=== PATIENT | male | born 1950 | race Caucasian/White ===

== ENCOUNTER 2016-07-27 21:56 | Inpatient (IN) | payer MEDICARE, OTHER ==
[~2016-07-27] VITALS: Ht 190.5 cm; Wt 108.9 kg
[~2016-07-27 21:56] MED LIST: ALPR0.5T8 PO; AMIO200T2 PO; AMLO5TAB4 PO; BENA20TA2 PO; CARV25TA PO; EDOX60TA PO; PRAV80TA21 PO
[2016-07-27 22:40] LABS: BASOPHILS % (AUTO) 0.5 % (0.0-2.0); DIFF TOTAL % 100 %; EOSINOPHILS # (AUTO) 0.1 /CMM (0.0-0.7); EOSINOPHILS % (AUTO) 1.3 % (0.0-6.0); HEMATOCRIT 39 % (39-51); HEMOGLOBIN 12.4 g/dL (13.5-17.5); LYMPHOCYTES # (AUTO) 1.5 /CMM (0.8-4.8); MEAN CORPUSCULAR HEMOGLOBIN 28 PG (26.0-33.0); MEAN CORPUSCULAR HGB CONC 32 g/dl (31.0-36.0); MEAN CORPUSCULAR VOLUME 86 fL (80-96); MONOCYTES # (AUTO) 0.8 /CMM (0.1-1.30); MONOCYTES % (AUTO) 9.6 % (2.0-12.0); NEUTROPHILS # (AUTO) 5.9 /CMM (1.8-8.9); NEUTROPHILS % (AUTO) 70.6 % (43.0-81.0); PLATELET COUNT (AUTO) 229 /CMM (150-450); WHITE BLOOD COUNT (AUTO) 8.3 K/uL (4.3-11.0)
[2016-07-27] MEDS ORDERED: ASPIRIN 325 MG TABLET ONE (22:49)
[2016-07-27 22:50] LABS: CALCIUM, SERUM 8.8 mg/dL (8.5-10.1); CREATININE 1.6 mg/dL (0.6-1.3)
[2016-07-27 22:54] LABS: TROPONIN I 0.394 ng/mL (0.00-0.056)
[2016-07-27 22:58] LABS: INR 0.99 (0.87-1.13); PROTHROMBIN TIME 10.7 SECS (9.5-12.7)
[2016-07-27] MEDS ORDERED: ASPIRIN 325 MG TABLET PO ONE (23:00)
[2016-07-27] MEDS ORDERED: ALBUTEROL FS 2.5 MG/0.5 ML VIAL.NEB NEB PRN (23:00)
[2016-07-27] MEDS ORDERED: ALBUTEROL FS 2.5 MG/0.5 ML VIAL.NEB ONE (23:09)
[2016-07-28] VITALS (7 sets, daily range): BP systolic 117–131; BP diastolic 60–76
[2016-07-28] MEDS ORDERED: ACETAMINOPHEN 325 MG TABLET PO PRN (01:30)
[2016-07-28] MEDS ORDERED: HYDROCODONE/APAP 5/325MG 1 EACH TABLET PO PRN (01:30)
[2016-07-28] MEDS ORDERED: ALPRAZOLAM 0.5 MG TABLET PO PRN (01:30)
[2016-07-28] MEDS ORDERED: MAG HYDROX/AL HYDROX/SIMETH 30 ML UDC PO PRN (01:30)
[2016-07-28] MEDS ORDERED: MORPHINE SULFATE INJ 2 MG/ML DISP.SYRIN IV PRN (01:30)
[2016-07-28] MEDS ORDERED: Z GUARD REMEDY 2 OZ OINT TP PRN (01:30)
[2016-07-28] MEDS ORDERED: ZOLPIDEM TARTRATE 5 MG TABLET PO PRN (01:30)
[2016-07-28] MEDS ORDERED: ONDANSETRON HCL/PF 4 MG/2 ML VIAL IVP PRN (01:30)
[2016-07-28] MEDS ORDERED: MAGNESIUM HYDROXIDE 30 ML UDC PO PRN (01:30)
[2016-07-28] MEDS ORDERED: FUROSEMIDE 20 MG/2 ML VIAL IV ONE (09:00)
[2016-07-28] MEDS: methylPREDNISolone SOD SUCC 40 MG/ML VIAL IV SCH ×3 (09:36→17:20)
[2016-07-28] MEDS ORDERED: PANTOPRAZOLE 40 MG TABLET.DR PO SCH (09:41)
[2016-07-28] MEDS ORDERED: AMLODIPINE BESYLATE 5 MG TABLET PO SCH (18:00)
[2016-07-28] MEDS ORDERED: AMIODARONE HCL 200 MG TABLET PO SCH (18:00)
[2016-07-28] MEDS ORDERED: BENAZEPRIL HCL 20 MG TABLET PO SCH (18:00)
[2016-07-28] MEDS ORDERED: EDOXABAN TOSYLATE 60 MG PO SCH (18:00)
[2016-07-28] MEDS ORDERED: CARVEDILOL 12.5 MG TABLET PO SCH (18:00)
[2016-07-28] MEDS ORDERED: PRAVACHOL PO SCH (22:00)
== END 2016-07-28 17:45 | disposition home or self-care (01) | DRG 280 ==
LOC: ER 21:59 → TELE 22:51
PROVIDERS: ADMIT Internal Medicine; ATTEND Internal Medicine
DX: I21.4 Non-ST elevation (NSTEMI) myocardial infarction (principal); I50.23 Acute on chronic systolic (congestive) heart failure; I47.2 Ventricular tachycardia; N17.9 Acute kidney failure, unspecified; Z95.810 Presence of automatic (implantable) cardiac defibrillator; E78.5 Hyperlipidemia, unspecified; I25.10 Atherosclerotic heart disease of native coronary artery without angina pectoris; K21.9 Gastro-esophageal reflux disease without esophagitis; N40.0 Benign prostatic hyperplasia without lower urinary tract symptoms; Z87.01 Personal history of pneumonia (recurrent); I48.91 Unspecified atrial fibrillation; J42 Unspecified chronic bronchitis; T46.4X5A Adverse effect of angiotensin-converting-enzyme inhibitors, initial encounter; Y92.009 Unspecified place in unspecified non-institutional (private) residence as the place of occurrence of the external cause; I11.0 Hypertensive heart disease with heart failure; E05.90 Thyrotoxicosis, unspecified without thyrotoxic crisis or storm
CPT/HCPCS: 36415; 71010-TC; 80048-TC; 84484-TC; 85025-TC; 85730-TC; 87081-TC; A4606; J1940; J2920; Z7610